=== PATIENT | female | born 1955 | race Caucasian/White ===

== ENCOUNTER 2025-09-17 12:47 | Outpatient (REF) | payer MEDICARE, BC, SELFPAY ==
--- OUTSIDE RECORDS SUMMARY | 2009-08-23 | XMS_ITS | Encounter Summary ---
Author Organization [facility] Address [address] [place] [address] Phone Care Team Providers Care Certified Orthoptist Name Role Phone Unavailable Primary Care Provider Unavailabl e Encounter Details Date Type Department Care Team (Late st Contact Info) Description 08/23/2009 [facility] Encounter [facility] [address] [place] [address] Pepe [place] MD [address] [place] [address] Social History Tobacco Use Types Packs/Day Years Used Date Smoking Tobacco: Never Assessed Education Answer Date Recorded Are you interested in more education? Not on kat e 03/23/2023 Are you concerned about learning? Not on file 03/23/2023 No 03/23/2023 No 03/23/2023 Digital Access Answer Date Recorded No 04/24/2023 No 04/24/2023 No 04/24/2023 Reliable internet access at home? Not on file 04/24/2023 Device with a working camera? Not on file Comments Unknown Sex and Gender Information Value Date Recorded Sex Assigned at Female 07/07/2021 9:59 AM EDT Legal Sex Female 12:19 PM EST Gender Identity Female 07/07/2021 9:59 AM EDT Sexual Orientation Straight 07/07/2021 9: 59 AM EDT documented as of this encounter Plan of Treatment Upcoming Encounters Date Type Department Care Team (Late st Contact Info) Description 01/19/2026 10:00 AM EST Office Visit [facility] [address] [place] [address] Eduarda Marcial MD [address] [place] [address] [email or web address] documented as of this encounter Procedures Procedure Name Priority Date/Time Associated Diagnosis Comments BI MAMMOGRAM OUTSIDE (NO INTERPRETATION) Routine 08/23/2009 12:00 AM EDT documented in this encounter Results * Mammogram Outside (No Interpretation) (08/23/2009 12:00 AM EDT) Narrative [facility] - 02/06/2018 9:04 AM EDT This study is for PACS storage only and not for interpretation. us Pepe [place] MD IMG OUTSIDE IMAGING W/OUT INTERPRETATION Final Result [facility] documented in this encounter Visit Diagnoses Not on filedocumented in this encounter Additional Source Comments The information contained in this document represents components of the legal health record. It is not the complete legal health record.[facility]
--- OUTSIDE RECORDS SUMMARY | 2009-08-27 | XMS_ITS | Encounter Summary ---
Author Organization [facility] Address [address] [place] [address] Phone Care Team Providers Care Earthmoving Plant Operator Name Role Phone Unavailable Primary Care Provider Unavailabl e Encounter Details Date Type Department Care Team (Late st Contact Info) Description 08/27/2009 Hospital Encounter [facility] [address] [place] [address] Pepe [place] MD [address] [place] [address] Social History Tobacco Use Types Packs/Day Years [...] 10:00 AM EST Office Visit [facility] [address] [place] [address] Eduarda Marcial MD [address] [place] [address] [email or web address] documented as of this encounter Procedures Procedure Name Priority Date/Time Associated Diagnosis Comments BI MAMMOGRAM OUTSIDE (NO INTERPRETATION) Routine 08/27/2009 12:00 AM EDT documented in this encounter Results * Mammogram Outside (No Interpretation) (08/27/2009 12:00 AM EDT) Narrative [facility] - 02/06/2018 9:05 AM EDT This study is for PACS storage only and not for interpretation. us Pepe [place] MD IMG OUTSIDE IMAGING W/OUT INTERPRETATION Final Result [facility] documented in this encounter Visit Diagnoses Not on filedocumented in this encounter Additional Source Comments The information contained in this document represents components of the legal health record. It is not the complete legal health record.[facility]
--- OUTSIDE RECORDS SUMMARY | 2010-09-01 | XMS_ITS | Encounter Summary ---
Author Organization [facility] Address [address] [place] [address] Phone Care Team Providers Care Bullet Swaging Machine Adjuster Name Role Phone Unavailable Primary Care Provider Unavailabl e Encounter Details Date Type Department Care Team (Late st Contact Info) Description 09/01/2010 Hospital Encounter [facility] [address] [place] [address] Pepe [place] MD [address] [place] [address] Social History Tobacco Use Types Packs/Day Years [...] 10:00 AM EST Office Visit [facility] [address] [place] [address] Eduarda Marcial MD [address] [place] [address] [email or web address] documented as of this encounter Procedures Procedure Name Priority Date/Time Associated Diagnosis Comments BI MAMMOGRAM OUTSIDE (NO INTERPRETATION) Routine 09/01/2010 12:00 AM EDT documented in this encounter Results * Mammogram Outside (No Interpretation) (09/01/2010 12:00 AM EDT) Narrative [facility] [place] [facility] - 02/06/2018 9:05 AM EDT This study is for PACS storage only and not for interpretation. us Pepe [place] MD IMG OUTSIDE IMAGING W/OUT INTERPRETATION Final Result [facility] documented in this encounter Visit Diagnoses Not on filedocumented in this encounter Additional Source Comments The information contained in this document represents components of the legal health record. It is not the complete legal health record.[facility]
--- OUTSIDE RECORDS SUMMARY | 2011-09-09 | XMS_ITS | Encounter Summary ---
Author Organization [facility] Address [address] [place] [address] Phone Care Team Providers Care Windows Infrastructure Engineer Name Role Phone Unavailable Primary Care Provider Unavailabl e Encounter Details Date Type Department Care Team (Late st Contact Info) Description 09/09/2011 Hospital Encounter [facility] [address] [place] [address] Pepe [place] MD [address] [place] [address] Social History Tobacco Use Types Packs/Day Years [...] 10:00 AM EST Office Visit [facility] [address] [place] [address] Eduarda Marcial MD [address] [place] [address] [email or web address] documented as of this encounter Procedures Procedure Name Priority Date/Time Associated Diagnosis Comments BI MAMMOGRAM OUTSIDE (NO INTERPRETATION) Routine 09/09/2011 12:00 AM EDT documented in this encounter Results * Mammogram Outside (No Interpretation) (09/09/2011 12:00 AM EDT) Narrative [facility] - 02/06/2018 9:07 AM EDT This study is for PACS storage only and not for interpretation. us Pepe [place] MD IMG OUTSIDE IMAGING W/OUT INTERPRETATION Final Result [facility] documented in this encounter Visit Diagnoses Not on filedocumented in this encounter Additional Source Comments The information contained in this document represents components of the legal health record. It is not the complete legal health record.[facility]
--- OUTSIDE RECORDS SUMMARY | 2012-09-19 | XMS_ITS | Encounter Summary ---
Author Organization [facility] Address [address] [place] [address] Phone Care Team Providers Care Top Taper Machine Name Role Phone Unavailable Primary Care Provider Unavailabl e Encounter Details Date Type Department Care Team (Late st Contact Info) Description 09/19/2012 Hospital Encounter [facility] [address] [place] [address] Pepe [place] MD [address] [place] [address] Social History Tobacco Use Types Packs/Day Years [...] AM EST Office Visit [facility] [address] [place] [address] Eduarda Marcial MD [address] [place] [address] [email or web address] documented as of this encounter Procedures Procedure Name Priority Date/Time Associated Diagnosis Comments BI MAMMOGRAM OUTSIDE (NO INTERPRETATION) Routine 09/19/2012 12:00 AM EDT documented in this encounter Results * Mammogram Outside (No Interpretation) (09/19/2012 12:00 AM EDT) Narrative [facility] [place] [facility] - 02/06/2018 9:06 AM EDT This study is for PACS storage only and not for interpretation. us Pepe [place] MD IMG OUTSIDE IMAGING W/OUT INTERPRETATION Final Result [facility] [place] documented in this encounter Visit Diagnoses Not on filedocumented in this encounter Additional Source Comments The information contained in this document represents components of the legal health record. It is not the complete legal health record.[facility]
--- OUTSIDE RECORDS SUMMARY | 2013-09-22 | XMS_ITS | Encounter Summary ---
Author Organization [facility] Address [address] [place] [address] Phone Care Team Providers Care Animal Hospital Clerk Name Role Phone Unavailable Primary Care Provider Unavailabl e Encounter Details Date Type Department Care Team (Late st Contact Info) Description 09/22/2013 Hospital Encounter [facility] [address] [place] [address] Pepe [place] MD [address] [place] [phone] Social History Tobacco Use Types Packs/Day Years [...] 10:00 AM EST Office Visit [facility] [address] [place] [address] Eduarda Marcial MD [address] [place] [phone] [email or web address] documented as of this encounter Procedures Procedure Name Priority Date/Time Associated Diagnosis Comments BI MAMMOGRAM OUTSIDE (NO INTERPRETATION) Routine 09/22/2013 12:00 AM EDT documented in this encounter Results * Mammogram Outside (No Interpretation) (09/22/2013 12:00 AM EDT) Narrative [facility] [place] [place] - 02/06/2018 9:06 AM EDT This study is for PACS storage only and not for interpretation. us Pepe [place] MD IMG OUTSIDE IMAGING W/OUT INTERPRETATION Final Result [facility] documented in this encounter Visit Diagnoses Not on filedocumented in this encounter Additional Source Comments The information contained in this document represents components of the legal health record. It is not the complete legal health record.[facility]
--- OUTSIDE RECORDS SUMMARY | 2014-09-29 01:00 | XMS_ITS | Encounter Summary ---
Author Organization [facility] Address [address] [place] [address] Phone Care Team Providers Care Commercial Painter Name Role Phone Unavailable Primary Care Provider Unavailabl e Encounter Details Date Type Department Care Team (Late st Contact Info) Description 09/29/2014 Hospital Encounter [facility] [address] [place] [address] Pepe [place] MD [address] [place] [address] Social History Tobacco Use Types Packs/Day Years [...] 10:00 AM EST Office Visit [facility] [address] [place] [address] Eduarda Marcial MD [address] [place] [address] [email or web address] documented as of this encounter Procedures Procedure Name Priority Date/Time Associated Diagnosis Comments BI MAMMOGRAM OUTSIDE (NO INTERPRETATION) Routine 09/29/2014 12:00 AM EST documented in this encounter Results * Mammogram Outside (No Interpretation) (09/29/2014 12:00 AM EST) Narrative [facility] - 02/06/2018 9:08 AM EDT This study is for PACS storage only and not for interpretation. us Pepe Jakcson MD IMG OUTSIDE IMAGING W/OUT INTERPRETATION Final Result [facility] documented in this encounter Visit Diagnoses Not on filedocumented in this encounter Additional Source Comments The information contained in this document represents components of the legal health record. It is not the complete legal health record.[facility]
--- OUTSIDE RECORDS SUMMARY | 2014-10-02 01:00 | XMS_ITS | Encounter Summary ---
Author Organization [facility] Address [address] [place] [address] Phone Care Team Providers Care Justice Court Deputy Clerk Name Role Phone Unavailable Primary Care Provider Unavailabl e Encounter Details Date Type Department Care Team (Late st Contact Info) Description 10/02/2014 Hospital Encounter [facility] [address] [place] [address] Pepe [place] MD [address] [place] [address] Social History Tobacco Use Types Packs/Day Years [...] 10:00 AM EST Office Visit [facility] [address] [place] [address] Eduarda Marcial MD [address] [place] [address] [email or web address] documented as of this encounter Procedures Procedure Name Priority Date/Time Associated Diagnosis Comments BI MAMMOGRAM OUTSIDE (NO INTERPRETATION) Routine 10/02/2014 12:00 AM EST documented in this encounter Results * Mammogram Outside (No Interpretation) (10/02/2014 12:00 AM EST) Narrative [facility] - 02/06/2018 9:07 AM EDT This study is for PACS storage only and not for interpretation. us Pepe [place] MD IMG OUTSIDE IMAGING W/OUT INTERPRETATION Final Result [facility] documented in this encounter Visit Diagnoses Not on filedocumented in this encounter Additional Source Comments The information contained in this document represents components of the legal health record. It is not the complete legal health record.[facility]
--- OUTSIDE RECORDS SUMMARY | 2015-10-04 01:00 | XMS_ITS | Encounter Summary ---
Author Organization [facility] Address [address] [place] [address] Phone Care Team Providers Care Physicist Light And Optics Name Role Phone Unavailable Primary Care Provider Unavailabl e Encounter Details Date Type Department Care Team (Late st Contact Info) Description 10/04/2015 Hospital Encounter [facility] [address] [place] [address] Pepe [place] MD [address] [place] [address] Social History Tobacco Use Types Packs/Day Years [...] AM EST Office Visit [facility] [address] [place] [address] Eduarda Marcial MD [address] [place] [address] documented as of this encounter Procedures Procedure Name Priority Date/Time Associated Diagnosis Comments BI MAMMOGRAM OUTSIDE (NO INTERPRETATION) Routine 10/04/2015 12:00 AM EST documented in this encounter Results * Mammogram Outside (No Interpretation) (10/04/2015 12:00 AM EST) Narrative [facility] - 02/06/2018 9:08 AM EDT This study is for PACS storage only and not for interpretation. us Pepe [place] MD IMG OUTSIDE IMAGING W/OUT INTERPRETATION Final Result [facility] documented in this encounter Visit Diagnoses Not on filedocumented in this encounter Additional Source Comments The information contained in this document represents components of the legal health record. It is not the complete legal health record.[facility]
--- OUTSIDE RECORDS SUMMARY | 2016-10-09 01:00 | XMS_ITS | Encounter Summary ---
Author Organization [facility] Address [address] [place] [address] Phone Care Team Providers Care Air Purifier Servicer Name Role Phone Unavailable Primary Care Provider Unavailabl e Encounter Details Date Type Department Care Team (Late st Contact Info) Description 10/09/2016 Hospital Encounter [facility] [address] [place] [address] Pepe [place] MD [address] [place] [address] Social History Tobacco Use Types Packs/Day Years [...] 10:00 AM EST Office Visit [facility] [address] [place] [address] Eduarda Marcial MD [address] [place] [address] [email or web address] documented as of this encounter Procedures Procedure Name Priority Date/Time Associated Diagnosis Comments BI MAMMOGRAM OUTSIDE (NO INTERPRETATION) Routine 10/09/2016 12:00 AM EST documented in this encounter Results * Mammogram Outside (No Interpretation) (10/09/2016 12:00 AM EST) Narrative [facility] [place] INTERFACES - 02/06/2018 9:10 AM EDT This study is for PACS storage only and not for interpretation. us Pepe [place] MD IMG OUTSIDE IMAGING W/OUT INTERPRETATION Final Result [facility] documented in this encounter Visit Diagnoses Not on filedocumented in this encounter Additional Source Comments The information contained in this document represents components of the legal health record. It is not the complete legal health record.[facility]
--- NOTE | 2025-09-17 12:54 | EMG_ITS ---
Chief complaint: Right hand numbness 1st and 3rd digits, right forearm pain and pain on base of thumb Reason for referral: Evaluate for Carpal Tunnel Syndrome versus radiculopathy Referred by: Dr. Daigle Procedure done: Right upper extremity NCS/EMG Precautions and/or limitations: None The limb temperature was monitored continuously and remained between 32-36 degrees C during the performance of the NCS. Nerve Conduction Studies Anti Sensory Summary Table ?Stim Site NR Onset (ms) Norm Onset (ms) Peak (ms) Norm Peak (ms) O-P Amp (?V) Norm O-P Amp Site1 Site2 Delta-0 (ms) Dist (cm) Avinash (m/s) Norm Avinash (m/s) Right Median Anti Sensory (2nd Digit) Wrist ? 4.0 5.2 <3.6 10.6 >10 Wrist 2nd Digit 4.0 14.0 35 Right Radial Anti Sensory (Thumb) Forearm ? 1.7 2.2 <3.1 28.9 Forearm Thumb 1.7 0.0 Right Ulnar Anti Sensory (5th Digit) Wrist ? 1.8 3.3 <3.7 19.1 >15.0 Wrist 5th Digit 1.8 14.0 78 Motor Summary Table ?Stim Site NR Onset (ms) Norm Onset (ms) O-P Amp (mV) Norm O-P Amp iAmp (mV) Amp (1st) (%) Site1 Site2 Delta-0 (ms) Dist (cm) Avinash (m/s) Norm Avinash (m/s) Right Median Motor (Abd Poll Brev) Wrist ? 5.7 <3.9 6.0 >4.5 7.1 100.0 Elbow Wrist 4.0 18.5 46 >45 Elbow ? 9.7 5.7 6.7 95.0 Right Ulnar Motor (Abd Dig Minimi) Wrist ? 2.9 <3.0 8.8 >5 11.0 100.0 B Elbow Wrist 3.0 18.0 60 >45 B Elbow ? 5.9 8.3 10.5 94.3 A Elbow B Elbow 1.6 10.0 63 >45 A Elbow ? 7.5 8.4 10.8 95.5 EMG ?Side Muscle Nerve Root Ins Act Fibs Psw Amp Dur Poly Recrt Int Pat Comment Right 1stDorInt Ulnar C8-T1 Nml Nml Nml Nml Nml 0 Nml Complete Right FlexCarRad Median C6-7 Nml Nml Nml Nml Nml 0 Nml Complete Right Biceps Musculocut C5-6 Nml Nml Nml Nml Nml 0 Nml Complete Right Triceps Radial C6-7-8 Nml Nml Nml Nml Nml 0 Nml Complete Right Deltoid Axillary C5-6 Nml Nml Nml Nml Nml 0 Nml Complete FINDINGS: Right median motor nerve showed prolonged distal latency, normal amplitude and normal conduction velocity. Right median sensory nerve showed prolonged peak latency. All other nerves tested were within normal. Concentric needle EMG was performed in selected muscles of the right upper extremity. Study did not reveal signs of electric abnormalities as shown in the table above. IMPRESSION: 1. This is an abnormal study. 2. There is electrodiagnostic evidence for right moderate-severe median neuropathy at the wrist, consistent with carpal tunnel syndrome. 3. There is no electrodiagnostic evidence for ulnar neuropathy, brachial plexopathy, or cervical radiculopathy. Thank you for your kind referral. Katia Mckeon MD, NITIN Board Certified, [place] [employer] and Rehabilitation (ABPMR) Board Certified, [place] Board of Electrodiagnostic Medicine (ABEM) CODIN [address], 1 extremity MTDD
--- OUTSIDE RECORDS SUMMARY | 2025-09-17 15:56 | XMS_ITS | Encounter Summary ---
Author Organization [facility] Address [address] [place] [address] [place] [address] Phone Care Team Providers Care Evidence Specialist Name Role Phone Pepe [place] MD Primary Care Provider [phone] Tami Plaza MD Primary Care Provider [phone] Encounter Details Date Type Department Care Team (Late st Contact Info) Description 11/02/2017 Ancillary Orders [facility] for [facility] [address] [place] [address] Pepe [place] MD [address] [place] [address] Screening breast examination Social History Tobacco Use Types Packs/Day Years Used Date Smoking Tobacco: Never Assessed Comments Unknown Sex and Gender Information Value [...] 10:00 AM EST Office Visit [facility] [address] [place] [address] [place] [address] Eduarda Marcial MD [address] [place] [phone] documented as of this encounter Results * BI MAMMOGRAM SCREENING WITH TOMOSYNTHESIS WITH CAD (BILATERAL) (01/26/2018 10:51 AM EST) Anatomical Region Laterality Modality Breast Left, Breast Right, Breast Bilateral Bila teral Mammography 01/26/2018 Impressions 02/06/2018 10:24 AM EDT There is no specific mammographic evidence of malignancy. BI-RADS Category 1: Negative Patient's information is entered into a reminder system with a target due date for the next mammogram. Narrative 02/06/2018 10:24 AM EDT INDICATION FOR EXAM: Screening. PROCEDURE: The following standard mammographic and tomosynthesis views were obtained: craniocaudal and mediolateral oblique. Computer-aided detection was utilized by the radiologist in the interpretation of this examination. BILATERAL MAMMOGRAM: The breast tissue is heterogeneously dense, which could obscure detection of small masses. No suspicious masses, calcifications or other abnormalities are seen. Procedure Note Abelardo Diaz MD - 02/06/2018 INDICATION FOR EXAM: Screening. PROCEDURE: The following standard mammographic and tomosynthesis views were obtained:craniocaudal and mediolateral oblique. Computer-aided detection wasutilized by the radiologist in the interpretation of this examination. BILATERAL MAMMOGRAM: The breast tissue is heterogeneously dense, which could obscure detectionof small masses. No suspicious masses, calcifications or other abnormalities are seen. IMPRESSION: There is no specific mammographic evidence of malignancy. BI-RADS Category 1: Negative Patient's information is entered into a reminder system with a target duedate for the next mammogram. Pepe [place] MD IM MG EXAMS Final Res ult documented in this encounter Visit Diagnoses Diagnosis Screening breast examination Other screening breast examination Screening breast examination Other screening breast examination documented in this encounter Care Teams Evidence Specialist Relationship Specialty Start Date End Date Pepe [place] MD [address] [place] [phone] PCP - General Internal Medicine 11/02/17 07/09/18 Tami [place] MD [address] [place] [address] PCP - General Internal Medicine 07/10/18 documented as of this encounter Additional Source Comments The information contained in this document represents components of the legal health record. It is not the complete legal health record.[facility]
--- OUTSIDE RECORDS SUMMARY | 2025-09-17 15:56 | XMS_ITS | Encounter Summary ---
Author Organization [facility] Address [address] [facility] [address] [place] [address] Phone Care Team Providers Care Customer Quality Engineer Name Role Phone Pepe Jackson MD Primary Care Provider [phone] [phone] Tami Plaza MD Primary Care Provider [phone] [phone] Reason for Referral * MRI/CAT Scan - Closed Specialty Diagnoses / Procedures Referred By Contac t Referred To Contact Radiology Diagnoses Dense breast Procedures MRI Breast (Bilateral) Tami Plaza MD Phone: tel: fax: Referral ID Status Reason Start Date Expiration Date Visits Re quested Visits Authorized [id number] Closed 11/21/2018 12/21/2018 1 1 Encounter Details Date Type Department Care Team (Late st Contact Info) Description 07/02/2018 Ancillary Orders For Login Purposes Only [address] [facility] Floor 2 [address] [place] [address] Tami Plaza MD [address] [place] [address] Dense breast Social History Tobacco Use Types Packs/Day Years [...] 10:00 AM EST Office Visit [facility] [address] [place] [address] Eduarda Marcial MD [address] [place] [address] [email or web address] documented as of this encounter Results * BI MRI BREAST WITH AND WITHOUT CONTRAST (BILATERAL) (12/02/2018 2:50 PM EST) Anatomical Region Laterality Modality Breast Left, Breast Right, Breast Bilateral Bila teral Magnetic Resonance 12/02/2018 Impressions 12/02/2018 4:06 PM EST No MR evidence of malignancy in either breast. BI-RADS Category 1: Negative Patient's information is entered into a reminder system with a target due date for the next exam. We support the [place] [employer] guidelines for early breast cancer detection in women at increased risk for breast cancer. These guidelines recommend breast MRI in combination with mammography for women at 20% or greater lifetime risk of breast cancer. Narrative 12/02/2018 4:06 PM EST BREAST MRI HISTORY: 63 year old patient with dense breast tissue presents for high risk screening breast MRI. No documented family or personal history of breast cancer. COMPARISON: Baseline MRI. TECHNIQUE: The patient was placed prone in a bilateral dedicated 8 channel open breast coil ([employer]) and the following series were obtained with a 1.5 Neli MR scanner ([employer]): 3-plane localizer; axial non fat suppressed T1; axial fat suppressed T2, one pre contrast and two post-contrast axial dynamic fat suppressed T1. Contrast was delivered as a power-injected (2 cc/sec) weight-adjusted (0.1 mm/kg) dose of gadolinium followed by a 15 cc saline flush. Multi-planar reconstructions in sagittal and coronal orientations were created of the immediate post-contrast T1-weighted images. Subtraction images were created by subtracting the pre-contrast from immediate post-contrast T1-weighted images, and were presented both in the axial plane and in 3D reconstructions (maximum intensity projections). Enhancement kinetics (initial and delayed) were evaluated for the dynamic phase series and displayed with color overlay maps. Initial enhancement thresholds of 50% increase for medium uptake and 100% increase for rapid uptake were applied, and delayed curve types were defined as washout for 10% or greater decrease in signal intensity, plateau for less than 10% change in signal intensity, and persistent enhancement for 10% or greater increase in signal intensity. FINDINGS: There is heterogenous fibroglandular tissue. There is minimal background parenchymal enhancement. There is no suspicious mass or area of abnormal enhancement in either breast. There is no abnormality of the chest wall, either axilla, or nipple areolar complex. Procedure Note Sharri Goodrich MD - 12/02/2018 BREAST MRI HISTORY: 63 year old patient with dense breast tissue presents for highrisk screening breast MRI. No documented family or personal history ofbreast cancer. COMPARISON: Baseline MRI. TECHNIQUE: The patient was placed prone in a bilateral dedicated 8 channel openbreast coil (Fabbeo) and the following series were obtained with a 1.5 TeslaMR scanner ([employer]beo): 3-plane localizer; axial non fat suppressed T1; axial fatsuppressed T2, one pre contrast and two post-contrast axial dynamic fatsuppressed T1. Contrast was delivered as a power-injected (2 cc/sec)weight-adjusted (0.1 mm/kg) dose of gadolinium followed by a 15 cc salineflush. Multi-planar reconstructions in sagittal and coronal orientations werecreated of the immediate post-contrast T1-weighted images. Subtractionimages were created by subtracting the pre-contrast from immediatepost-contrast T1-weighted images, and were presented both in the axialplane and in 3D reconstructions (maximum intensity projections).Enhancement kinetics (initial and delayed) were evaluated for the dynamicphase series and displayed with color overlay maps. Initial enhancementthresholds of 50% increase for medium uptake and 100% increase for rapiduptake were applied, and delayed curve types were defined as washout for10% or greater decrease in signal intensity, plateau for less than 10%change in signal intensity, and persistent enhancement for 10% or greaterincrease in signal intensity. FINDINGS: There is heterogenous fibroglandular tissue. There is minimal backgroundparenchymal enhancement. There is no suspicious mass or area of abnormal enhancement in eitherbreast. There is no abnormality of the chest wall, either axilla, or nippleareolar complex. IMPRESSION: No MR evidence of malignancy in either breast. BI-RADS Category 1: Negative Patient's information is entered into a reminder system with a target duedate for the next exam. We support the [place] [employer] guidelines for early breast cancerdetection in women at increased risk for breast cancer. These guidelinesrecommend breast MRI in combination with mammography for women at 20% orgreater lifetime risk of breast cancer. us Tami Plaza MD IMG MR BREAST Final Res ult documented in this encounter Visit Diagnoses Diagnosis Dense breast Inconclusive mammogram Dense breast Inconclusive mammogram documented in this encounter Care Teams Customer Quality Engineer Relationship Specialty Start Date End Date Pepe Jackson MD [address] [place] [address] PCP - General Internal Medicine 11/02/17 07/09/18 Tami Plaza MD [address] [place] [address] PCP - General Internal Medicine 07/10/18 documented as of this encounter Additional Source Comments The information contained in this document represents components of the legal health record. It is not the complete legal health record.[facility]
--- OUTSIDE RECORDS SUMMARY | 2025-09-17 15:56 | XMS_ITS | Encounter Summary ---
Author Organization [facility] Address [address] [place] [address] Phone Care Team Providers Care Chart Changer Name Role Phone Tami Plaza MD Primary Care Provider [phone] [phone] Reason for Referral * MRI/CAT Scan - Closed Specialty Diagnoses / Procedures Referred By Contac t Referred To Contact Radiology Diagnoses Dense breast Procedures MR 3D Reconstruction Breast Tami Plaza MD Phone: tel: fax: Referral ID Status Reason Start Date Expiration Date Visits Re quested Visits Authorized [id number] Closed 07/10/2018 07/10/2019 1 1 Encounter Details Date Type Department Care Team (Late st Contact Info) Description 07/10/2018 Ancillary Orders For Login Purposes Only [address] [facility] Floor 2 [address] [place] [address] Tami Plaza MD [address] [place] [address] Dense breast Social History Tobacco Use Types [...] 10:00 AM EST Office Visit [facility] [address] [place] [address] Eduarda Marcial MD [address] [place] [address] [email or web address] documented as of this encounter Results * MR 3D Reconstruction Breast (12/02/2018 2:50 PM EST) Anatomical Region Laterality Modality Breast Left, Breast Right, Breast Bilateral Computed Tomography 12/02/2018 Impressions 12/02/2018 4:06 PM EST No MR evidence of malignancy in either breast. BI-RADS Category 1: Negative Patient's information is entered into a reminder system with a target due date for the next exam. We support the [place] [employer] guidelines for early breast cancer [...] bilateral dedicated 8 channel open breast coil ([place] [place]) and the following series were obtained with a 1.5 Neli MR scanner ([place]): 3-plane localizer; axial non fat suppressed T1; [...] a bilateral dedicated 8 channel openbreast coil ([employer]) and the following series were obtained with a 1.5 TeslaMR scanner ([place] [place]): 3-plane localizer; axial non fat suppressed T1; [...] for the next exam. We support the [place] [employer] guidelines for early breast cancerdetection [...] mammogram documented in this encounter Care Teams Chart Changer Relationship Specialty Start Date End Date Tami Plaza MD [address] [place] [address] PCP - General Internal Medicine 07/10/18 documented as of this encounter Additional Source Comments The information contained in this document represents components of the legal health record. It is not the complete legal health record.[facility]
--- OUTSIDE RECORDS SUMMARY | 2025-09-17 15:57 | XMS_ITS | Encounter Summary ---
Author Organization [facility] Address [address] [facility] [address] [place] [address] Phone Care Team Providers Care Traffic Control Signaler Name Role Phone Tami Plaza MD Primary Care Provider [phone] [phone] Encounter Details Date Type Department Care Team (Late st Contact Info) Description 08/17/2021 Transcribe Orders MRI, [facility] [address], [address] [place] [address] Tami Plaza MD [address] [place] [address] Social History Tobacco Use Types Packs/Day Years [...] 10:00 AM EST Office Visit [facility] [address] [place] [address] Eduarda Marcial MD [address] [place] [phone] [email or web address] documented as of this encounter Visit Diagnoses Not on filedocumented in this encounter Care Teams Traffic Control Signaler Relationship Specialty Start Date End Date Tami Plaza MD [address] [place] [address] PCP - General Internal Medicine 07/10/18 documented as of this encounter Additional Source Comments The information contained in this document represents components of the legal health record. It is not the complete legal health record.[facility]
--- OUTSIDE RECORDS SUMMARY | 2025-09-17 15:57 | XMS_ITS | Encounter Summary ---
Author Organization [facility] Address [address] [place] [address] Phone Care Team Providers Care Vegetable Buncher Name Role Phone Tami Plaza MD Primary Care Provider [phone] [phone] Reason for Visit * Reason Onset Date Comments Referral 09/02/2025 Encounter Details Date Type Department Care Team (Late st Contact Info) Description 09/02/2025 Telephone [facility] [address] [place] [address] Eduarda Marcial MD [address] [place] [address] [email or web address] Referral Social History Tobacco Use Types Packs/Day Years [...] AM EDT documented as of this encounter Progress Notes * ArchieSelina alcaraz - 09/16/2025 12:48 PM EDT PT called back to check on the referral, states that it has been faxed over numerous times. Requesting call back to f/u. [facility] Call Center CSS Agent (Please do not reply to this user, as this inbox is not monitored. Thank you.) Thank you. * Caitie Monroe - 09/10/2025 4:40 PM EDT Pt stated that this has been ongoing for three weeks and she is becoming frustrated. Please contactand advise. Central Support Marble Installation Helper (Please do not reply to this user; this inbox is not monitored.) Thank you. * Orquidea Proctor - 09/09/2025 1:15 PM EDT Pt called in again. No referral on file. She will have it re faxed. Central Support Marble Installation Helper (Please do not reply to this user; this inbox is not monitored.) Thank you. * Elda Rojas - 09/02/2025 3:24 PM EDT Locating Referral Fax Hel, We are notifying you that the patient called to schedule a new patient appointment. The referral is not listed on file or in the media tab. The patient has informed us that the referral was faxed out. Please review the SFA and contact the patient with the referral determination if it is on file or not. Thank you If caller not the patient: Name: Relationship: Referral Order Details provided by caller Diagnosis: ? trenton's Reason/Specify: Referred To Name: Dr. Marcial Referral Fax Out Dates: 08/21/25 Additional information: referral was faxed by Dr. Kitchen with [facility] in [place]. OK to leave message if she does not answer. Agent Action: > Route Encounter to FD Pool > Reason for Call: Referral > Comment: Call Back & Locate Referral in SFA Needed > Reiterate Scripting: Provide our referral not on file scripting Required Scripting: If the referral is not on file: Kirsten, thank you for calling. I see that you'vementioned your provider faxed over a referral, but we have not yet received it on our end. Sometimes there can be a delay in processing or receiving faxes. Can you please confirm the date it was sent and the fax number that was used? Provide the caller with the office fax number. I will be happy to send a message over to the office for them to review their records and let you know if they've received it. documented in this encounter Plan of Treatment Upcoming Encounters Date Type Department Care Team (Late st Contact Info) Description 01/19/2026 10:00 AM EST Office Visit [facility] [address] [place] [address] Eduarda Marcial MD [address] [place] [address] documented as of this encounter Visit Diagnoses Not on filedocumented in this encounter Care Teams Vegetable Buncher Relationship Specialty Start Date End Date Tami Plaza MD [address] [place] [address] PCP - General Internal Medicine 07/10/18 documented as of this encounter Additional Source Comments The information contained in this document represents components of the legal health record. It is not the complete legal health record.[facility]
--- OUTSIDE RECORDS SUMMARY | 2025-09-17 15:57 | XMS_ITS | Encounter Summary ---
Author Organization [facility] Address [address] [facility] [address] [place] [address] Phone Care Team Providers Care Artist Agent Name Role Phone Tami Plaza MD Primary Care Provider [phone] [phone] Reason for Referral * MRI/CAT Scan - Closed Specialty Diagnoses / Procedures Referred By Jasiel oquendo Referred To Contact Radiology Diagnoses Dense breast tissue on mammogram Procedures MRI Breast (Bilateral) Sara Overton DO [address] [place] [address] Phone: tel: fax: Referral ID Status Reason Start Date Expiration Date Visits Re quested Visits Authorized [id number] Closed 06/15/2020 07/15/2020 1 1 Encounter Details Date Type Department Care Team (Late st Contact Info) Description 12/19/2019 Ancillary Orders MRI, [facility] - [address], [address] [place] [address] Sara Overton DO [address] [place] [address] Dense breast tissue on mammogram Social History Tobacco Use Types Packs/Day Years [...] 10:00 AM EST Office Visit [facility] [address] [place] [address] Eduarda Marcial MD [address] [place] [address] [email or web address] documented as of this encounter Results * BI MRI BREAST WITH AND WITHOUT CONTRAST (BILATERAL) (06/15/2020 4:25 PM EDT) Anatomical Region Laterality Modality Breast Left, Breast Right, Breast Bilateral Bila teral Magnetic Resonance 06/15/2020 Impressions 06/16/2020 9:17 AM EDT 1. There is no MR evidence of malignancy in either breast. 2. Please note patient's last [facility] screening mammogram was performed 01/26/18. Routine yearly screening mammography is recommended. BI-RADS Category 1: Negative Patient's information is [...] greater lifetime risk of breast cancer. Narrative 06/16/2020 9:17 AM EDT HISTORY: 65 year old patient with dense breast tissue presents for high risk screening breast MRI. No documented family or personal history of breast cancer. COMPARISON: Comparison made to prior MRI and mammography exams. TECHNIQUE: The patient was placed prone in a bilateral dedicated 8 channel open breast coil ([place]) and the following series were obtained with a 1.5 Neli MR scanner ([place]): 3-plane localizer; axial non fat suppressed T1; [...] 10% or greater increase in signal intensity. BREAST MRI FINDINGS: There is heterogenous fibroglandular tissue. There is minimal background parenchymal enhancement. There is no suspicious mass or area of abnormal enhancement in either breast. There is no abnormality of the chest wall, either axilla, or nipple areolar complex. Procedure Note Vicky Joseph MD - 06/16/2020 HISTORY: 65 year old patient with dense breast tissue presents for high riskscreening breast MRI. No documented family or personal history of breastcancer. COMPARISON: Comparison made to prior MRI and mammography exams. TECHNIQUE: The patient was placed prone in a bilateral dedicated 8 channel openbreast coil ([place]) and the following series were obtained with a 1.5 TeslaMR scanner ([place]): 3-plane localizer; axial non fat suppressed T1; [...] for 10% or greaterincrease in signal intensity. BREAST MRI FINDINGS: There is heterogenous fibroglandular tissue. There is minimal background parenchymal enhancement. There is no suspicious mass or area of abnormal enhancement in eitherbreast. There is no abnormality of the chest wall, either axilla, ornipple areolar complex. IMPRESSION: 1. There is no MR evidence of malignancy in either breast. 2. Please note patient's last [facility] screening mammogram was performed01/26/18. Routine yearly screening mammography is recommended. BI-RADS Category 1: Negative Patient's information is entered into a reminder system with a target duedate for the next exam. We support the [place] [employer] guidelines for early breast cancerdetection in women at increased risk for breast cancer. These guidelinesrecommend breast MRI in combination with mammography for women at 20% orgreater lifetime risk of breast cancer. Sara Overton DO [facility] [place] MR BREAST Fin al Result documented in this encounter Visit Diagnoses Diagnosis Dense breast tissue on mammogram Dense breast tissue on mammogram documented in this encounter Care Teams Artist Agent Relationship Specialty Start Date End Date Tami Plaza MD [address] [place] [address] PCP - General Internal Medicine 07/10/18 documented as of this encounter Additional Source Comments The information contained in this document represents components of the legal health record. It is not the complete legal health record.[facility]
--- OUTSIDE RECORDS SUMMARY | 2025-09-17 15:57 | XMS_ITS | Encounter Summary ---
Author Organization [facility] Address [address] [place] [address] Phone Care Team Providers Care Sieve Repairer Name Role Phone Pepe Jackson MD Primary Care Provider [phone] [phone] Tami Plaza MD Primary Care Provider [phone] [phone] Encounter Details Date Type Department Care Team (Late st Contact Info) Description 07/02/2018 Procedure Pass MRI, [facility] - [address], [address] [place] [address] Social History Tobacco Use Types Packs/Day Years [...] 10:00 AM EST Office Visit [facility] [address] [place] [address] [place] [address] Eduarda Marcial MD [address] [place] [address] documented as of this encounter Visit Diagnoses Not on filedocumented in this encounter Care Teams Sieve Repairer Relationship Specialty Start Date End Date Pepe Jackson MD [address] [place] [address] PCP - General Internal Medicine 11/02/17 07/09/18 Tami Plaza MD [address] [place] [address] PCP - General Internal Medicine 07/10/18 documented as of this encounter Additional Source Comments The information contained in this document represents components of the legal health record. It is not the complete legal health record.[facility]
--- OUTSIDE RECORDS SUMMARY | 2025-09-17 15:57 | XMS_ITS | Clinical Summary ---
Author Organization [facility] Address [address] [place] [address] Care Team Providers Care Diver Helper Name Role Phone Unavailable Primary Care Provider Unavailabl e Social History Tobacco Use Types Packs/Day Years Used Date Smoking Tobacco: Never Assessed Comments Unknown Sex and Gender Information Value Date Recorded Sex Assigned at Not on file Legal Sex Female 1:23 PM EST Gender Identity Not on file Sexual Orientation Not on file Plan of Treatment Health Maintenance Due Date Last Done Comments Colorectal Cancer: COLONOSCO PY Screening every 10 yrs (or Modifier) 1957 Depression: Screening Annual ly using PHQ-2/9 in Adults 18 yrs or above (or HM Modifier)([facility]) 1975 Hepatitis C Virus Infection in Adolescents and Adults: Screening (or Modifier) ([facility]) 1975 SDPA Screening Reminder: Evelin reid for all adults ([facility]) 1975 Tobacco Smoking Cessation: i n Adults excluding Women: Behavioral and Pharmacotherapy Interventions ([facility]) 1975 Colorectal Cancer Screening 45 -75 Yrs (or HM Modifier) 2002 Colorectal Cancer: FLEXIBLE SIGMOIDOSCOPY Screening every 5 yrs 2002 Colorectal Cancer: Fecal Immunochemical Test (FIT) Annually [facility] 2002 Colorectal Cancer: High-sens itivity gFOBT Screening Annually [facility] 2002 Colorectal Cancer: Stool Col oguard Screening every 3 yrs 2002 Colorectal Cancer:CT Colonog mahamed Screening every 5 yrs 2002 Pneumococcal Vaccination Scr eening: Patients 50+ yrs of age ([facility]) (2 of 2 - PCV) 07/24/2020 07/24/2019 DTaP/Tdap/Td Vaccines ([facility]) (2 - Td or Tdap) 10/10/2021 10/10/2011 Zoster/Shingles Vaccine Seri es Screening: Adults aged 18+ yrs (or HM Modifiers)([facility] ) (2 of 2) 10/25/2021 08/30/2021 Breast Cancer: Screening Evelin ually age 50-74 yrs (or HM Modifier)([facility] ) 09/28/2022 09/28/2021 Osteoporosis Screening to Pr event Fractures: Women aged 65 years+ ([facility] ) 10/27/2023 10/27/2021 Flu Vaccination: Ages 65+: Y early High Dose Recommended (or Modifier)([facility] ) 06/26/2025 08/10/2021, , 07/28/2020 COVID-19 Vaccine Screening: Initial Series and Booster Status ([facility]) (2024- season) 2025 02/12/2021, 01/22/2021 RSV Vaccines (1 - 1-dose 75+ series) 2032 [employer] Not on file Insurance [facility]
--- OUTSIDE RECORDS SUMMARY | 2025-09-17 15:57 | XMS_ITS | Encounter Summary ---
Author Organization [facility] Address [address] [address] Phone Care Team Providers Care Manufacturing Executive Name Role Phone Tami Plaza MD Primary Care Provider [phone] [phone] Reason for Referral * Consultation (Within 1 month) - New Request Specialty Diagnoses / Procedures Referred By Jasiel oquendo Referred To Contact Endocrinology Diagnoses Hypothyroidism, unspecified type Gifty Kitchen MD [address] [place] [address] Phone: tel: fax: [facility] [address] [place] [address] Phone: tel: Referral ID Status Reason Start Date Expiration Date V isits Requested Visits Authorized [id number] New Request 09/17/2025 09/17/2026 1 1 Encounter Details Date Type Department Care Team (Late st Contact Info) Description 09/17/2025 Transcribe Orders [facility] [address] [place] [address] Gifty Kitchen MD [address] [place] [address] Hypothyroidism, unspecified type (Primary Dx) Social History Tobacco Use Types Packs/Day Years [...] 10:00 AM EST Office Visit [facility] [address] [place] [address] Eduarda Marcial MD [address] [place] [address] Scheduled Referrals Name Type Priority Associated Diagnoses Order Schedule Ambulatory referral to [facility] Endocrinology Outpatient Referral Routine Hypothyroidism, unspecified type Ordered: 09/17/2025 documented as of this encounter Visit Diagnoses Diagnosis Hypothyroidism, unspecified type- Primary documented in this encounter Care Teams Manufacturing Executive Relationship Specialty Start Date End Date Tami Plaza MD [address] [place] [address] PCP - General Internal Medicine 07/10/18 documented as of this encounter Additional Source Comments The information contained in this document represents components of the legal health record. It is not the complete legal health record.[facility]
--- OUTSIDE RECORDS SUMMARY | 2025-09-17 15:57 | XMS_ITS ---
Author Name [facility] Organization Unknown Care Team Organization Name Specialty Phone Email Start Date End Da te [facility] EDWIN EDWARDS Primary Care [email or web address] 11/07/2023 4 [facility] Jenny Peterson Primary Care 08/02/202306/26 4 [facility] Tami Plaza Primary Care 10/03/2022 4
--- OUTSIDE RECORDS SUMMARY | 2025-09-17 15:57 | XMS_ITS | Encounter Summary ---
Author Organization [facility] Address [address] [facility] [address] [place] [address] Phone Care Team Providers Care Plate Filler Name Role Phone Tami Plaza MD Primary Care Provider [phone] Encounter Details Date Type Department Care Team (Late st Contact Info) Description 07/10/2018 Procedure Pass [facility] [address] [place] [address] Social History Tobacco Use Types Packs/Day Years [...] 10:00 AM EST Office Visit [facility] [address] [place] [address] [place] [address] Eduarda Marcial MD [address] [place] [address] documented as of this encounter Visit Diagnoses Not on filedocumented in this encounter Care Teams Plate Filler Relationship Specialty Start Date End Date Tami Plaza MD [address] [place] [address] [place] [address] PCP - General Internal Medicine 07/10/18 documented as of this encounter Additional Source Comments The information contained in this document represents components of the legal health record. It is not the complete legal health record.[facility]
--- OUTSIDE RECORDS SUMMARY | 2025-09-17 15:57 | XMS_ITS | Clinical Summary ---
Author Organization [facility] Address [address] [place] [address] Phone Care Team Providers Care Emery Grinder Name Role Phone Tami Plaza MD Primary Care Provider [phone] Encounters Date Type Department Care Team Description 09/17/2025 Transcribe Orders [facility] [place] [address] [place] [address] Gifty Kitchen MD Hypothyroidism, unspecified type (Primary Dx) 09/02/2025 Telephone [facility] [place] [place] [address] [place] [address] Eduarda Marcial MD Referral from Last 3 Months Social History Tobacco Use Types Packs/Day Years [...] Orientation Straight 07/07/2021 9: 59 AM EDT Plan of Treatment Upcoming Encounters Date Type Department Care Team (Late st Contact Info) Description 01/19/2026 10:00 AM EST Office Visit [facility] [address] [place] [address] [place] [address] Eduarda Marcial MD [address] [place] [phone] [email or web address] Health Maintenance Due Date Last Done Comments Adult Td,Tdap Booster 1955 LIPID PANEL 1957 DEPRESSION SCREENING 1969 SMOKING Hx and SMOKELESS TOBACCO SCREENING 1970 HEPATITIS C SCREENING 1975 COLOGUARD 2002 COLONOSCOPY 2002 COLORECTAL CANCER SCREENING 2002 FIT TEST 2002 FOBT 2002 SIGMOIDOSCOPY 2002 VIRTUAL COLONOSCOPY 2002 PNEUMOCOCCAL VACCINES (50+ years) (1 of 1 - PCV) 2007 ZOSTER VACCINES (1 of 2) 2007 MAMMOGRAM 01/27/2020 01/26/2018, 09/26, 10/04/2015, Additional history exists OSTEOPOROSIS SCREENING INITIAL (ONE-TIME) 2022 INFLUENZA VACCINE (#1) 2025 7, 08/18/2016, 07/07/2015, Additional history exists COVID-19 VACCINE ( - 2024- season) 2025 RSV VACCINE (1 - 1-dose 75+ series) 2032 HEPATITIS A VACCINES Aged Out No long er eligible based on patient's age to complete this topic HIB VACCINES Aged Out No longer eligi ble based on patient's age to complete this topic MENINGOCOCCAL VACCINES (ACWY) Aged Out No longer eligible based on patient's age to complete this topic MENINGOCOCCAL VACCINES (B) Aged Out N o longer eligible based on patient's age to complete this topic Medical Devices Not on file Insurance [facility] H[facility] POS [facility] Care Teams Emery Grinder Relationship Specialty Start Date End Date Tami Plaza MD [address] [place] [address] PCP - General Internal Medicine 07/10/18 Additional Source Comments The information contained in this document represents components of the legal health record. It is not the complete legal health record.[facility]
--- OUTSIDE RECORDS SUMMARY | 2025-09-17 15:57 | XMS_ITS | Encounter Summary ---
Author Organization [facility] Address [address] [facility] [address] [place] [address] Phone Care Team Providers Care It Network Architect Name Role Phone Tami Plaza MD Primary Care Provider [phone] Encounter Details Date Type Department Care Team (Late st Contact Info) Description 12/19/2019 Procedure Pass MRI, [facility] - [address], [address] [place] [id number] Social History Tobacco Use Types Packs/Day Years [...] 10:00 AM EST Office Visit [facility] [address] [place] [address] Eduarda Marcial MD [address] [place] [address] documented as of this encounter Visit Diagnoses Not on filedocumented in this encounter Care Teams It Network Architect Relationship Specialty Start Date End Date Tami Plaza MD [address] [place] [address] PCP - General Internal Medicine 07/10/18 documented as of this encounter Additional Source Comments The information contained in this document represents components of the legal health record. It is not the complete legal health record.[facility]
--- OUTSIDE RECORDS SUMMARY | 2025-09-17 15:57 | XMS_ITS | Clinical Summary ---
Author Organization [facility] Address [address] [place] [address] Phone Care Team Providers Care Seasonal Greenery Bundler Name Role Phone Dakota Kitchenastridsimi Primary Care Provider Allergies Active Allergy Reactions Criticality Noted Date Comments Sulfa Antibiotics Diarrhea High 11/12/2024 Medications albuterol HFA (PROVENTIL HFA;VENTOLIN HFA) 108 (90 Base) MCG/ACT inhaler Inhale 2 puffs 11/28/2021 Active cholecalciferol (VITAMIN D-3 SUPER STRENGTH) 50 MCG (2000 UT) tablet Take 4,000 Units by mouth in the morning. 11/14/2023 Active citalopram (CeleXA) 10 MG tablet Take 1.5 tablets by mouth 1 (one) time each day 11/28/2023 Active cycloSPORINE (RESTASIS) 0.05 % ophthalmic emulsion 1 drop Active dorzolamide-grayson olol (COSOPT) 2-0.5 % ophthalmic solution 06/21/2023 Active estradiol (VIVELLE-DOT) 0.0375 MG/24HR Place 1 patch on the skin 07/02/2021 Active valACYclovir (VALTREX) 1 g tablet Take 1,000 mg by mouth in the morning and 1,000 mg in the evening. 06/14/2023 Active Progesterone 100 MG capsule Take 1 capsule by mouth 1 (one) time each day 05/07/2024 Active [place] Thyroid 90 MG tablet Take 90 mg by mouth 1 (one) time each day Active Active Problems No known active problems Social History Tobacco Use Types Packs/Day Years Used Date Smoking Tobacco: Never Assessed Comments Unknown Sex and Gender Information Value Date Recorded Sex Assigned at Not on file Legal Sex Female 7:46 AM EST Gender Identity Not on file Sexual Orientation Not on file Last Filed Vital Signs Vital Sign Reading Time Taken Comments Blood Pressure 132/80 11/12/2024 10:48 AM EST Pulse 72 11/12/2024 10:48 AM EST Temperature - - Respiratory Rate - - Oxygen Saturation 97% 11/12/2024 10:48 AM EST Inhaled Oxygen Concentration - - Weight 81.6 kg (180 lb) 11/12/2024 10:48 AM EST Height - - Body Mass Index - - Plan of Treatment Upcoming Encounters Date Type Department Care Team (Late st Contact Info) Description 11/10/2025 2:00 PM EST Office Visit [facility] [address] [address] Karri Bennett MD [address] [address] Health Maintenance Due Date Last Done Comments Breast Cancer Screening 1955 Colorectal Cancer Screening: Annual FOBT 2006 Colorectal Cancer Screening: Colonoscopy 2006 Colorectal Cancer Screening: Sigmoidoscopy 2006 Hepatitis B Vaccine (1 of 3 - Risk 3-dose series) 2017 Pneumococcal Vaccine: 50+ Ye ars (2 of 2 - PCV) 07/24/2020 07/24/2019 Influenza Vaccine (#1) 2025 4, 11/14/2023, 10/26/2022, Additional history exists Insurance Medicare [facility] Care Teams Seasonal Greenery Bundler Relationship Specialty Start Date End Date Gifty Kitchen [address] [place] [phone] PCP - General 11/12/24
--- OUTSIDE RECORDS SUMMARY | 2025-09-17 15:58 | XMS_ITS | Clinical Summary ---
Author Organization [facility] Address [address] [place] [phone] Phone Care Team Providers Care Mortgage Branch Manager Name Role Phone Gifty Kitchen MD Primary Care Pr ovider Allergies Active Allergy Reactions Criticality Noted Date Comments Sulfacetamide Sodium Rash 12/19/2005 Nausea and vomiting Medications albuterol HFA (PROAIR HFA ; PROVENTIL HFA ; VENTOLIN HFA) 90 mcg/actuation inhaler Inhale 2 puffs by mouth. 11/28/19 22 Active dorzolamide-timolo L (COSOPT) 22.3-6.8 mg/mL ophthalmic solution 06/21/20 23 Active estradioL (VIVELLE-DOT) 0.0375 mg/24 hr 07/02/20 21 Active multivitamin with minerals (Complete MV Adult 50 Plus) tablet Take 1 tablet by mouth 1 (one) time each day. 04/04/20 18 Active thyroid, pork, ([place] Thyroid) 90 mg tabletIndications: Acquired hypothyroidism Take by mouth. 11/17/20 24 Active cycloSPORINE (Restasis) 0.05 % ophthalmic emulsion Administer 1 drop into both eyes 2 (two) times a day. 11/17/20 24 Active omeprazole (PriLOSEC) [address] capsuleIndications :Gastroesophageal reflux disease without esophagitis TAKE 1 CAPSULE(20 MG) BY MOUTH 1 TIME EACH DAY. DO NOT CRUSH OR CHEW 90 capsule 1 02/24/20 25 Active rosuvastatin (CRESTOR) 10 mg tablet Take 1 tablet (10 mg total) by mouth 1 (one) time each day. 90 tablet 1 05/19/20 25 Active diclofenac (Voltaren Arthritis Pain) 1 % topical gel Apply 2 g topically 4 (four) times a day. 150 g 1 07/01/20 25 Active citalopram (CeleXA) 10 mg tablet Take 2 tablets (20 mg total) by mouth 1 (one) time each day. 90 tablet 1 07/06/20 25 Active cholecalciferol (VITAMIN D-3) 50 mcg (2,000 unit) tablet Take 2 tablets (4,000 Units total) by mouth 1 (one) time each day. 180 tablet 1 03/19/20 25 025 Active Problems Problem Noted Date Diagnosed Date Pancreatic cyst 05/19/2025 Pain of right thumb 11/17/2024 Assessment & Plan (11/17/2024 9:45 AM EST): Currently minimal. She will let me know if it worsens for further evaluation with XRAYs and potentially orthopedics eval Liver lesion 11/17/2024 Assessment & Plan (11/17/2024 9:45 AM EST): Continue GI follow up and repeat MRI abdomen. She will reach out to GI to place another referral for her MRI which is currently scheduled at [facility]. Ideally, this should be scheduled at [facility]. Kidney cysts 11/17/2024 Assessment & Plan (11/17/2024 9:45 AM EST): Seen by (Dr. Bennett) on 11/12/24 Gastroesophageal reflux disease without esophagi tis 11/17/2024 Assessment & Plan (11/17/2024 9:45 AM EST): Advised to avoid food triggers. Will check h pylori and thereafter start omeprazole Orders: omeprazole (PriLOSEC) [address] capsule; Take 1 capsule (20 mg total) by mouth 1 (one) time each day. Do not crush or chew. Helicobacter pylori breath test; Future Heel spur, left 11/17/2024 Hyperlipidemia 11/12/2023 Overview (12/17/2024): Calculated ASCVD risk is 7.4% Assessment & Plan (11/17/2024 9:45 AM EST): Will recalculate ASCVD risk based on updated lipid levels. She is advised to cut back on cheese consumption Orders: Lipid panel with reflex to direct LDL; Future COVID 06/02/2022 Overview (02/02/2024): Positive home test 06/02/22 Fatigue 05/26/2022 Overview (02/02/2024): 01/23/2022 [facility]. Pt describes as quite severe in intensity. 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 Interested in ID evaluation, referral is placed Orders: Ambulatory referral to Infectious Disease; Future Osteopenia 07/24/2019 Assessment & Plan (11/17/2024 9:45 AM EST): continue vitamin D daily Obese 02/13/2017 Hypothyroidism 05/07/2014 Assessment & Plan (11/17/2024 9:45 AM EST): Continue follow up with Integrative medicine in [place]; continue on thyroid [place] 90 mg Sunday through Sunday and 45mg on sundays only.Last TSH in Sep wnl Anxiety and depression 03/24/2011 Assessment & Plan (11/17/2024 9:45 AM EST): See HPI Information on Celexa wean provided Vitamin D deficiency 07/09/2009 Assessment & Plan (11/17/2024 9:45 AM EST): Continue vitamin D daily Orders: Vitamin D 25 hydroxy; Future Fatty liver disease, nonalcoholic 05/19/2008 Overview (02/02/2024): 05/03 us fatty infilterate Had endoscopy few years ago and was told overactive stomach-was placed on tegamet Allergic rhinitis 12/19/2005 Encounters Date Type Department Care Team Description 08/21/2025 Telephone Adult Medicine [facility] [address] [place] [phone] Gifty Kitchen MD 07/01/2025 9:00 AM EDT Office Visit Orthopedic Surgery - [address] [place] [address] Hien Daigle, [place] Arthritis of carpometacarpal (CMC) joint of right thumb (Primary Dx); Pain of right thumb; Numbness and tingling in right hand; Right carpal tunnel syndrome from Last 3 Months Immunizations Immunization Administration Dates Next Due Influenza Quadravalent, MDCK , 0.5ml, preservative free (Flucelvax) 6mo and older 08/10/2021,07/28/2020 Influenza Quadravalent, MDCK , 0.5ml, with preservative (Flucelvax) 6mo and older 09/11/2017 Influenza trivalent, 0.5mL ( Fluad) 65yo and older 11/17/2024 Influenza trivalent, 0.5mL ( Fluzone High-dose) 65yo and older 11/14/2023,10/26/2022 Influenza trivalent, 0.5mL, preservative free (Fluarix; FluLaval; Fluzone) ages 6mo and older (Afluria) 3 years and older 08/18/2016,07/07/2015 Influenza trivalent, with pr eservative (Fluzone; Afluria) 6mo and older 08/18/2016,07/07/2015,08/29/2012,08/16,08/31/2010,08/20/2009,09/02/2008 ,09/19/2007 Influenza, Unspecified 09/26/2013 Pfizer SARS-CoV-2 COVID-19, mRNA, LNP-S, preservative free 12/05/2021 Pneumococcal conjugate 20 va lent (Prevnar 20, PCV 20) 2mo and older 02/12/2023 Pneumococcal polysaccharide 23 valent (Pneumovax 23) 2yo and older 07/24/2019 TD, Adsorbed, Preservative Free 10/19/2021 Td Tetanus diptheria (Tdvax) 7yo and older 10/19/2021,09/14/2004 Td, Unspecified 09/14/2004 Tdap Tetanus diptheria acell ular pertussis (Boostrix; Adacel) 7yo and older 10/10/2011 Zoster Live 03/24/2017 Zoster recombinant (Shingrix ) 19yo and older 10/31/2021,08/30/2021 Surgical History Surgery Date Site/Laterality Comments SECTION PROCEDURE: [place] DELIVERY ONLY COLONOSCOPY 07/18/07 PROCEDURE: HISTORICAL COLONOSCOPY; COMMENT: diverticulosis; repeat in ten years COLONOSCOPY W/ POLYPECTOMY 05/10/2017 PROCEDURE: [place] COLSC FLX W/RMVL OF TUMOR POLYP LESION SNARE TQ; COMMENT: adenoma and tics; repeat in 5 yrs STEREOTACTIC CORE BIOPSY Medical History Medical History Date Comments Allergic rhinitis 12/19/2005 DX:Allergic rh initis; COMMENT: 01/07-pft Normal flow rates pre and post bronchodilator, normal static lung volumes and normal diffusing capacity. 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 Pt describes as quite severe in intensity. Osteopenia 07/24/2019 DX:Osteopenia Liver lesion DX:Liver lesion Kidney lesion DX:Kidney lesion Colon polyps DX:Colon polyps Family history of liver cancer D X:Family history of liver cancer Family History Medical History Relation Name Comments Colon polyps Father CA liver; liver cancer, c/o resection. at 89 Other: billiary cirrhosis Mother Di ed at 62, Sarcoidosis Thyroid disease Sister Hypothyroidi sm, Systemic Lupus Erythematosus Relation Name Status Comments Father Mother Sister Alive Social History Tobacco Use Types Packs/Day Years Used Date Smoking Tobacco: Never Smokeless Tobacco: Never Alcohol Use Standard Drinks/Week Comments Yes 0 (1 standard drink = 0.6 oz pur e alcohol) Housing Instability Answer Date Recorde d Are you worried that in the next 2 months you may not have stable housing? No 12/26/2024 Food Access & Nutrition Answer Date Rec orded Do you have access to a vari ety of food including fruits and vegetables? Yes 12/26/2024 Access to Healthcare Answer Date Record ed Within the last 3 months, ho w many times did you visit the emergency department for your medical care? 0 11/16/2024 Health Literacy Answer Date Recorded How often do you need to hav e someone help you when you read instructions, pamphlets, or other written material from your doctor or pharmacy? Never 12/26/2024 Caregiver: How often do you need to have someone help you when you read instructions, pamphlets, or other written material from your doctor or pharmacy? Not on file 12/26/2024 Financial Risk Answer Date Recorded How hard is it for you to pa y for the very basics like food, housing, medical care, and air conditioning / heating? Not very hard 12/26/2024 Transportation Answer Date Recorded Has the lack of transportati on kept you from meetings, work, or from getting things needed for daily living? No Has the lack of transportati on kept you from medical appointments or from getting medications? No 12/26/2024 Social Isolation Answer Date Recorded How often do you feel lonely or isolated from th ose around you? Never 12/26/2024 Food Risk Answer Date Recorded Within the past 12 months we worried whether our food would run out before we got money to buy more. Never true 12/26/2024 Within the past 12 months th e food we bought just didn't last and we didn't have money to get more. Never true 12/26/2024 Dependent Care Answer Date Recorded Do you need help finding or paying for care for your loved ones. For example, manager child or elderly care for an older adult? No 12/26/2024 Education Answer Date Recorded Do you think completing more education or training, like finishing a GED, going to college, or learning a trade, would be helpful for you? N/A 12/26/2024 Employment and Income Answer Date Recor ded During the last four weeks, have you been actively looking for work? No 12/26/2024 Living Situation Answer Date Recorded What is your living situation? Unrecognized valu e 12/26/2024 Comments No Sex and Gender Information Value Date Recorded Sex Assigned at Not on file Legal Sex Female 5:49 PM EST Gender Identity Not on file Sexual Orientation Not on file Obstetrics History Para Term AB IAB SAB Ectopic Multiple Livin g Live Births 1 1 Date Outcome GA Total Labor Labor/2nd/3rd Weight Sex Type Anes PTL Gisele A1 A5 Name Clin Last Filed Vital Signs Vital Sign Reading Time Taken Comments Blood Pressure 112/58 05/19/2025 8:28 AM EDT Pulse 64 05/19/2025 8:28 AM EDT Temperature 36.2 C (97.2 F) 05/19/2025 8:28 AM EDT Respiratory Rate 14 05/19/2025 8:28 AM EDT Oxygen Saturation 96% 05/19/2025 8:28 AM EDT Inhaled Oxygen Concentration - - Weight 83.9 kg (185 lb) 07/01/2025 9:03 AM EDT Height 165.1 cm (5' 5 ) 07/01/2025 9:03 AM EDT Body Mass Index 30.79 07/01/2025 9:03 AM EDT Plan of Treatment Upcoming Encounters Date Type Department Care Team (Late st Contact Info) Description 12/23/2025 2:30 PM EST Office Visit Adult Medicine [address] [phone] Gifty Kitchen MD [address] [place] [address] 01/08/2026 1:30 PM EST Office Visit Obstetrics and [facility]necology - [facility] [address] [place] [phone] Gagan Nielson, CNM [address] [place] [address] 01/11/2026 9:00 AM EST Office Visit Gastroenterology - [address] [place] [phone] Arabella Negrete, PRODUCTION EXPEDITER [facility] [address] [place] [address] Health Maintenance Due Date Last Done Comments RSV Immunization Adult Patients (1 - Risk 50-74 years 1-dose series) 2007 COVID-19 Vaccine ( season) 2025 12/05/2021, 02/12/2021, 01/22/2021 Influenza Vaccine (#1) 2025 , 11/14/2023, 10/26/2022, Additional history exists Falls Risk Assessment 11/17/2025 11/17/2024 Medicare Annual Wellness Visit 11/17/2025 11/17/2024 Social Influencers of Health Screening 12/26/2025 12/26/2024 Breast Cancer Screening 10/29/2026 10/29/20, 10/29/2023, 10/25/2022, Additional history exists Colorectal Cancer Screening: Colonoscopy 05/14/2028 05/14/2023 Cholesterol Screening (Lipid Panel) 05/19/2030 05/19/2025, 12/16/2024, 06/25/2024, Additional history exists DTaP,Tdap,and Td Vaccines (6 - Td or Tdap) 10/19/2031 10/19/2021, 10/19/2021, 10/10/2011, Additional history exists Osteoporosis Screening (Bone Density Screening) 12/17/2033 12/17/2023, 10/27/2021, 08/11/2019 Hepatitis C Screening Addressed 03/26/2017 Overri dden with the intention of not completing the topic Zoster Vaccines Completed 10/31/2021, 10/0 03/2021, 03/24/2017 Pneumococcal Vaccine: 50+ Years Completed 02/12/2023, 07/24/2019 Depression Screening Completed 12/26/2024 HIB Vaccines Aged Out No longer eligi ble based on patient's age to complete this topic HPV Vaccines Aged Out No longer eligi ble based on patient's age to complete this topic Hepatitis A Vaccines Discontinued Hepatitis B Vaccines Discontinued IPV Vaccines Aged Out No longer eligi ble based on patient's age to complete this topic MMR Vaccines Aged Out No longer eligi ble based on patient's age to complete this topic Meningococcal ACWY Vaccine Aged Out N o longer eligible based on patient's age to complete this topic Meningococcal B Vaccine Aged Out No l onger eligible based on patient's age to complete this topic RSV Immunization Patients Under 20 months Aged Out No longer eligible based on patient's age to complete this topic Varicella Vaccines Aged Out No longer eligible based on patient's age to complete this topic Procedures Procedure Name Priority Date/Time Associated Diagnosis Comments LIPID PANEL WITH REFLEX TO DIRECT LDL Routine 05/19/2025 9:13 AM EDT Mixed hyperlipidemia MG MAMMO DIGITAL SCREENING W RAMIRO BILAT Routine 10/29/2024 7:31 AM EST Encounter for screening mammogram for breast cancer DXA BONE DENSITY STUDY 1+ SITS AXIAL SKEL Routine 12/17/2023 9:36 AM EST Other specified disorders of bone density and structure, unspecified site from Last 3 Months or Most Recently Relevant to Health Maintenance Results * (ABNORMAL) Lipid panel with reflex to direct LDL (05/19/2025 9:13 AM EDT) Cholesterol 222(H) 0 - 200 mg/dL LAB CHEMISTRY METHOD 05/19/2025 1:59 PM EDT [facility] Triglycerides 185(H) 0 - 150 mg/dL LAB CHEMISTRY METHOD 05/19/2025 1:59 PM EDT [facility] HDL 51 >=40 mg/dL LAB CHEMISTRY METHOD 05/19/2025 1:59 PM EDT [facility] LDL Calculated 134(H) 0 - 100 mg/dL LAB CHEMISTRY METHOD 05/19/2025 1:59 PM EDT [facility] VLDL Cholesterol Haile 37 mg/dL LAB CHEMISTRY METHOD 05/19/2025 1:59 PM EDT [facility] Non HDL Chol. (LDL+VLDL) 171(H) <145 mg/dL LAB CHEMISTRY METHOD 05/19/2025 1:59 PM EDT [facility] Chol/HDL Ratio 4.4 0.0 - 4.4 LAB CHEMISTRY METHOD 05/19/2025 1:59 PM EDT [facility] Blood Venous blood specimen / Unknown Venipuncture / Unknown 05/19/2025 9:13 AM EDT 05/19/2025 9:13 AM EDT Jenny MASON LAB BLOOD ORDERABLES Final Re sult [facility] [address] [place] [address], [place] [phone] * MG Mammo Digital Screening w Ramiro bilat (10/29/2024 7:31 AM EST) Anatomical Region Laterality Modality Breast Bilateral Mammography 10/29/2024 8:09 AM EST Impressions 10/29/2024 8:13 AM EST No evidence of breast malignancy. BI-RADS CATEGORY: 2 - BENIGN RECOMMENDATION: Screening bilateral mammogram is recommended in 1 year. Mammo Location: [facility], [address] [place], [place], [address], . -------- FINAL REPORT -------- Dictated By: Charisse De La Cruz Dictated Date: 10/29/2024 08:09 ET Assigned Physician: Charisse De La Cruz Reviewed and Electronically Signed By: Charisse De La Cruz Signed Date: 10/29/2024 08:13 ET Workstation ID: [id number] Transcribed By: Self Edit Transcribed Date: 10/29/2024 08:09 ET Narrative 10/29/2024 8:13 AM EST CLINICAL: 69 years old, Female, routine annual exam. COMPARISON: 10/27/2023, 10/31/2022, 10/24/2022, 10/12/2021 and 09/28/2021 TECHNIQUE: Bilateral MLO and CC views were obtained digitally with 3-D mammogram (digital breast tomosynthesis). Computer-aided detection was utilized in evaluation of this exam (CAD). FINDINGS: There is no evidence of suspicious mass or architectural distortion. No worrisome calcifications are evident. There has been no significant change from prior exam(s). Stable biopsy marker in the left breast. BREAST DENSITY: C - The breasts are heterogeneously dense which may obscure small masses. Procedure Note Charisse De La Cruz MD - 10/29/2024 CLINICAL: 69 years old, Female, routine annual exam. COMPARISON: 10/27/2023, 10/31/2022, 10/24/2022, 10/12/2021 and 09/28/2021 TECHNIQUE: Bilateral MLO and CC views were obtained digitally with 3-Dmammogram (digital breast tomosynthesis). Computer-aided detection wasutilized in evaluation of this exam (CAD). FINDINGS: There is no evidence of suspicious mass or architectural distortion. Noworrisome calcifications are evident. There has been no significantchange from prior exam(s). Stable biopsy marker in the left breast. BREAST DENSITY: C - The breasts are heterogeneously dense which mayobscure small masses. IMPRESSION: No evidence of breast malignancy. BI-RADS CATEGORY: 2 - BENIGN RECOMMENDATION: Screening bilateral mammogram is recommended in 1 year. Mammo Location: [facility], [address] [place] [address], [id number], . -------- FINAL REPORT -------- Dictated By: Charisse De La Cruz Dictated Date: 10/29/2024 08:09 ET Assigned Physician: Charisse De La Cruz Reviewed and Electronically Signed By: Charisse De La Cruz Signed Date: 10/29/2024 08:13 ET Workstation ID: [id number] Transcribed By: Self Edit Transcribed Date: 10/29/2024 08:09 ET us Self Referral Sppl IMG BI PROCEDURES Final Resul t * DXA BONE DENSITY STUDY 1+ SITS AXIAL SKEL (12/17/2023 9:36 AM EST) Anatomical Region Laterality Modality Bone Densitometr y 07/18/2023 7:37 AM EDT Narrative 12/17/2023 5:50 PM EST BONE DENSITY SCAN (DEXA): FINDINGS: Lumbar Spine T-score is 0.0. (SD relative to 20-29 y/o adult) Z-score is 1.9. (SD relative to age matched peers) This is considered normal by WHO criteria. Left Hip T-score is -1.2. Z-score is 0.4. This is considered osteopenia by WHO criteria. Comparison exam(s): 10/27/2021. Unable to assess change in bone mineral density due to dissimilar scan methods. IMPRESSION: IMPRESSION: Osteopenia by WHO criteria. The [facility] Department of Internal Medicine recommends using National Osteoporosis Foundation (NOF) guidelines in treatment decisions related to osteoporosis. NOF guidelines suggest considering treatment for postmenopausal women and men aged 50 or older presenting with the following: History of hip or vertebral fracture. T-score = -2.5 (DXA) at the femoral neck, total hip, or spine, after appropriate evaluation to exclude secondary causes. Low bone mass (T-score between -1.0 and -2.5 at the femoral neck or spine) AND a 10-year probability of a hip fracture = 3% OR a 10-year probability of a major osteoporosis-related fracture = 20% based on the [place]-adapted WHO algorithm Please note that all treatment decisions require clinical judgment and consideration of individual patient factors, including patient preferences, co-morbidities, previous drug use, risk factors not captured in the FRAX model (e.g., frailty, falls, vitamin D deficiency, increased bone turnover, interval significant decline in bone density) and possible under- or over-estimation of fracture risk by FRAX. Optional alternative screening schedule based on benjamin Coon., [facility] December 14, 2011 for patients with osteopenia (based on hip BMD T-score) is as follows: * advanced osteopenia (T scores -2.00 to -2.49), BMD testing every year * moderate osteopenia (T scores -1.50 to -1.99), BMD testing every 5 years mild osteopenia or normal BMD (T scores -1.50 and higher), BMD testing every 15 years Procedure Note Shala Stringer MD - 07/14/2024 BONE DENSITY SCAN (DEXA): FINDINGS: Lumbar Spine T-score is 0.0. (SD relative to 20-29 y/o adult) Z-score is 1.9. (SD relative to age matched peers) This is considered normal by WHO criteria. Left Hip T-score is -1.2. Z-score is 0.4. This is considered osteopenia by WHO criteria. Comparison exam(s): 10/27/2021. Unable to assess change in bone mineraldensity due to dissimilar scan methods. IMPRESSION: IMPRESSION: Osteopenia by WHO criteria. The [facility] Department of Internal Medicine recommendsusing National Osteoporosis Foundation (NOF) guidelines in treatment decisions related toosteoporosis. NOF guidelines suggest considering treatment for postmenopausal women and menaged 50 or older presenting with the following: History of hip or vertebral fracture. T-score = -2.5 (DXA) at the femoral neck, total hip, or spine, afterappropriate evaluation to exclude secondary causes. Low bone mass (T-score between -1.0 and -2.5 at the femoral neck or spine)AND a 10-year probability of a hip fracture = 3% OR a 10-year probability of a majorosteoporosis-related fracture = 20% based on the [place]-adapted WHO algorithm Please note that all treatment decisions require clinical judgment andconsideration of individual patient factors, including patient preferences, co- morbidities,previous drug use, risk factors not captured in the FRAX model (e.g., frailty, falls, vitaminD deficiency, increased bone turnover, interval significant decline in bone density) andpossible under- or over-estimation of fracture risk by FRAX. Optional alternative screening schedule based on benjamin Coon., NEJJanuary 2011 for patients with osteopenia (based on hip BMD T-score) is as follows: * advanced osteopenia (T scores -2.00 to -2.49), BMD testing every year * moderate osteopenia (T scores -1.50 to -1.99), BMD testing every 5years mild osteopenia or normal BMD (T scores -1.50 and higher), BMD testingevery 15 years Sara Overton DO IMG DXA PROCEDURES Final Result from Last 3 Months or Most Recently Relevant to Health Maintenance Insurance MEDICARE [facility] Care Teams Mortgage Branch Manager Relationship Specialty Start Date End Date Gifty Kitchen MD [address] [place] [phone] PCP - General Internal Medicine 10/28/24
== END 2025-09-17 12:48 | disposition home or self-care (01) ==
LOC: HO.NEURO 12:47
PROVIDERS: PCP Family Medicine
DX: R20.0 Anesthesia of skin (principal); R20.2 Paresthesia of skin
CPT/HCPCS: 95886; 95909

== ENCOUNTER → 2025-09-17 12:54 | Outpatient (BNV) | payer MEDICARE, BC, SELFPAY | PROVIDERS: PCP Family Medicine; Visit Provider Physical Medicine & Rehabilitation | DX: G56.01 Carpal tunnel syndrome, right upper limb (principal) | CPT/HCPCS: 95886; 95909 ==